=== PATIENT | female | born 1975 | race Caucasian/White ===

== ENCOUNTER 2019-05-27 12:47 | Emergency (ER) | payer BC ==
[~2019-05-27] VITALS: Ht 167.6 cm; Wt 88.5 kg
[~2019-05-27 12:47] MED LIST: IBUPROFEN600 MG PO; OXYCODON-ACETA1 EAC2 PO; TYLENOL325 MG PO; ZOFRAN4 MG PO
== END 2019-05-27 13:08 | disposition home or self-care (01) ==
LOC: ED 12:47
DX: T81.9XXA Unspecified complication of procedure, initial encounter (principal)

== ENCOUNTER 2021-10-07 07:52 | Day surgery (SDC) | payer BC ==
[~2021-10-07] VITALS: Ht 167.6 cm; Wt 98.0 kg
[~2021-10-07 07:52] MED LIST changes: +HAIR, SKIN &66.7 MCG PO; +MULTI VITAMIN1 EACH PO; +OXYBUTYNIN CHLO10 MG PO
--- NOTE | 2021-10-07 11:29 | NUR ---
PT RESTING QUIETLY WITH AT BEDSIDE. NO NEEDS AT THIS TIME.
--- NOTE | 2021-10-07 14:07 | NUR ---
10/07/21 1407 Fern Us 1402-PATIENT ARRIVED TO PACU ON 6L MASK RR EVEN NONAROUSABLE ORAL AIRWAY IN PLACE. SR. IVF INFUSING. 3 LAP SITES TO ABDOMEN CDI POSADAS CATHTER DRAINING YELLOW URINE.
--- NOTE | 2021-10-07 14:46 | NUR ---
RECIEVED PT FROM PACU, PT HAS POSADAS CATHETER IN PLACE DRAINING CLEAR YELLOW URINE. SHE IS DROWSY BUT ANSWERING QUESTIONS APPROPRIATLY. AMY PAD CHECK WITH CLARK RN, NO DRAINAGE AT THIS TIME. ABDOMINAL DRESSINGS X [address] WITH NO NOTED DRAINAGE. PT DENIES PAIN OR NAUSEA AT THIS TIME. ENCOURAGE TO COUGH AND DEEP BREATHE. PT MOVING ALL EXTREMITIES X 4.
--- NOTE | 2021-10-07 14:58 | NUR ---
PT TAKING SIPS OF WATER. DENIES PAIN AT THIS TIME.
--- NOTE | 2021-10-07 15:34 | NUR ---
PT RESTING COMFORTABLY. C/O MILD NAUSEA, ZOFRAN GIVEN. NO BLEEDING NOTED ON PAD. DRESSINGS REMAIN CLEAN DRY AND INTACT.
--- NOTE | 2021-10-09 12:57 | PATH ---
[facility] [address], [place] [address] Signed SPECIMEN(S): A UTERUS, CERVIX, BILAT FALLOPIAN TUBES SPECIMEN SOURCE: A. UTERUS, CERVIX, BILAT FALLOPIAN TUBES CLINICAL HISTORY: Complex endometrial hyperplasia without atypia, abnormal uterine bleeding. TLH, BS, cysto. FINAL PATHOLOGIC DIAGNOSIS: Uterus with bilateral fallopian tubes, hysterectomy and bilateral salpingectomy: - Secretory phase endometrium; no residual complex hyperplasia or polyp identified. - Cervix with no significant pathologic changes. - Bilateral fallopian tubes with no significant pathologic changes. COMMENT: The previous histologic material ([id number]) is reviewed in conjunction with the current case. BRP:cml:C2NR MICROSCOPIC EXAMINATION: Histologic sections of all submitted blocks are examined by light microscopy. These findings, together with the gross examination, support the pathologic diagnosis. GROSS DESCRIPTION: The specimen, labeled "CK, A," and designated on the requisition "cervix, uterus, bilateral fallopian tubes," is received in formalin and consists of a uterus (86 gram, 6.6 cm left to right, 5.7 cm superior to inferior, 3.7 cm anterior to posterior), attached cervix (2.7 cm in length x 2.8 cm in diameter) with pink-retana to hemorrhagic cervical mucosa and patent slit-shaped os (1.4 x 0.3 cm), and two detached and undesignated fimbriated fallopian tube segments (4.4 cm in length and ranging in diameter from 0.5-0.9 cm, and 2.8 cm in length and ranging in diameter from 0.6-0.8 cm). One fallopian tube segment is arbitrarily inked blue. Both fallopian tube segments are brown-retana and are sectioned to reveal a grossly unremarkable cut surface. The fimbriae are entirely submitted. The uterine serosa is pink-retana and smooth. The specimen is opened to reveal a PATIENT NAME: BRIAN WHEATLEY PATHOLOGY DATE OF : 75 REPORT #: [id number] PHYSICIAN: MARCY PATHOLOGY PCP: BRAYAN PARK PA-C REPORT IS CONFIDENTIAL AND NOT TO BE RELEASED WITHOUT AUTHORIZATION [facility] [address], [place] [address] Signed pink-retana to hemorrhagic endocervix (endocervical canal: 2.5 x 1.0 cm), and endometrial cavity (4.0 cm superior to inferior x 3.1 cm cornu to cornu) with hemorrhagic endometrial lining that measures up to 0.2 cm in thickness. The myometrium is pink-retana and trabeculated with no masses. Foundry Technician sections are submitted as follows: Cassette Summary: (A1-A2) Fallopian tubes (A3) Cervix (A4) Endomyometrium AC (under the direct supervision of a pathologist) Per request by Dr. Marinelli, the remainder of the endometrium is submitted entirely in 11 cassettes (A5-A15). AI 10/08/21 13:36 The Gross Description was prepared using a voice recognition system. The report was reviewed for accuracy; however, sound-alike word errors, addition and/or deletions may occur. If there is any question about this report, please contact Client Services. PERFORMING LABORATORY: The technical component was performed by [facility], [address] [place] [id number] (Hardwood Floor Finisher: Yen Gutierrez MD; CLIA# [id number]). Professional interpretation was performed by [facility], [facility], [address] [place] [address] (CLIA# [id number]). Diagnostician: Richard Marinelli MD Pathologist Electronically Signed 10/09/2021 Copies: ~ PATIENT NAME: BRIAN WHEATLEY PATHOLOGY DATE OF : 75 REPORT #: [id number] PHYSICIAN: MARCY PATHOLOGY PCP: BRAYAN PARK PA-C REPORT IS CONFIDENTIAL AND NOT TO BE RELEASED WITHOUT AUTHORIZATION
== END 2021-10-07 16:45 | disposition home or self-care (01) ==
LOC: DS 07:52 → OPS 07:52 → DS 10:00 → OPS 16:45
PROVIDERS: ATTEND Obstetrics & Gynecology
PROC: 0UT94ZZ Resection of Uterus, Percutaneous Endoscopic Approach (ICD-10-PCS; principal; 2021-10-07 09:45)
PROC: 0UT74ZZ Resection of Bilateral Fallopian Tubes, Percutaneous Endoscopic Approach (ICD-10-PCS; 2021-10-07 09:45)
DX: N80.0 Endometriosis of uterus (principal); N93.9 Abnormal uterine and vaginal bleeding, unspecified; Q62.5 Duplication of ureter; F41.9 Anxiety disorder, unspecified; Z87.891 Personal history of nicotine dependence
CPT/HCPCS: 00840; J0690; J1100; J1170; J1644; J1885; J2001; J2250; J2405; J2704; J3010

== ENCOUNTER 2022-07-13 16:09 | Emergency (ER) | payer BC ==
[~2022-07-13] VITALS: Ht 167.6 cm; Wt 102.4 kg
[2022-07-13] MEDS ORDERED: HYDROCODON-ACE1 EA10 PO (18:34)
== END 2022-07-13 18:51 | disposition home or self-care (01) ==
LOC: ED 16:09
DX: S39.011A Strain of muscle, fascia and tendon of abdomen, initial encounter (principal); W01.0XXA Fall on same level from slipping, tripping and stumbling without subsequent striking against object, initial encounter
CPT/HCPCS: 73502; 96372; 99283-25; J1885

== ENCOUNTER 2022-12-18 05:42 | Day surgery (SDC) | payer BC ==
[~2022-12-18] VITALS: Ht 167.6 cm; Wt 100.0 kg
[~2022-12-18 05:42] MED LIST changes: +HYDROCODON-ACE1 EA10 PO; +LEXAPRO20 MG PO; +VITAMIN D250 MCG PO
[2022-12-18] MEDS ORDERED: TRAMADOL HCL50 MG PO (07:42)
--- NOTE | 2022-12-18 07:45 | NUR ---
12/18/22 0745 Sheets,Yelena 0712 PT ARRIVED TO PACU ON 6L VIA MASK, PT WAKES TO TACTILE STIMULI AND DENIES PAIN AND NAUSEA. PT EASLY FALLS BACK TO SLEEP. 0739 O2 REMOVED, PT RPEORTS NUMBNESS IN HAND, BLOCK INFORMATION GIVEN. ICE PLACED ON SURGICAL SITE.
--- NOTE | 2022-12-18 10:06 | NUR ---
PT TAKEN TO SURGERY, CONNECTED WITH PTS' IN RM. HE HAS DECIDED TO WAIT IN RM FOR DC. ALL QUESTIONS ASKED ANSWERED. GAVE BLESSING AND WILL FOLLOW
--- NOTE | 2022-12-19 09:43 | OR ---
[facility] [address] [place], [place] [address] Signed DATE OF OPERATION: 12/18/2022 SURGEON: Rowdy De La Cruz MD PREOPERATIVE DIAGNOSIS: Trigger finger, left middle. POSTOPERATIVE DIAGNOSIS: Trigger finger, left middle. PROCEDURE PERFORMED: Trigger finger release, left middle. VOICE STUDIES DIRECTOR: None. ANESTHESIA: Yuliana block. TOURNIQUET TIME: 20 minutes. BRIEF HISTORY: Brian is a 47-year-old female with pain and locking in her middle finger. Risks and benefits of operative release were discussed with her and she elected to proceed. Once consent was obtained she was taken to the operating room. PROCEDURE IN DETAIL: After adequate anesthesia, she was left on the surgery bed and the hand table was brought and the arm was prepped and draped in a standard sterile fashion. A 1.5 cm incision was made in the distal palmar crease, carried through the skin and subcutaneous tissue. The soft tissue was quite fibrotic and was released down to the flexor tendon sheath. This was then opened up proximally a centimeter and distally A1 radha was released all the way. The patient was asked to move her hand. She was able to fully flex, fully extend without any triggering or locking. The wound was copiously irrigated with normal saline, closed with 3-0 nylon, injected with 5 mL 0.25% plain Marcaine. The wound was dressed with bacitracin, Adaptic, 4 x 8s, and gauze. She tolerated the procedure well. All sponge, needle, and instrument counts were correct. Electronically Signed By: ROWDY DE LA CRUZ MD 12/19/22 0943 PATIENT NAME: BRIAN WHEATLEY OPERATIVE REPORT DATE OF : 75 REPORT #: [id number] PHYSICIAN: ROWDY DE LA CRUZ MD PCP: BRAYAN PARK PA-C REPORT IS CONFIDENTIAL AND NOT TO BE RELEASED WITHOUT AUTHORIZATION [address] [place] [address] Signed Rowdy De La Cruz MD BA/MODL /[id number] Copies: ~ Electronically Signed By: ROWDY DE LA CRUZ MD 12/19/22 0943 PATIENT NAME: BRIAN WHEATLEY OPERATIVE REPORT DATE OF : 75 REPORT #: [id number] PHYSICIAN: ROWDY DE LA CRUZ MD PCP: BRAYAN PARK PA-C REPORT IS CONFIDENTIAL AND NOT TO BE RELEASED WITHOUT AUTHORIZATION
== END 2022-12-18 08:16 | disposition home or self-care (01) ==
LOC: DS 05:42
PROVIDERS: ATTEND Specialist
PROC: 0LN Tendons, Release (ICD-10-PCS; principal; 2022-12-18 07:00)
DX: M65.332 Trigger finger, left middle finger (principal); M72.0 Palmar fascial fibromatosis [Dupuytren]
CPT/HCPCS: J0690; J1100; J1885; J2250; J2405; J2704; J2765; J3010; J7121

== ENCOUNTER 2023-10-05 19:45 | Emergency (ER) | payer OTHER, BC ==
[~2023-10-05] VITALS: Ht 167.6 cm; Wt 106.4 kg
[~2023-10-05 19:45] MED LIST changes: +TRAMADOL HCL50 MG PO
[2023-10-05] MEDS ORDERED: MELOXICAM15 MG PO (21:09)
[2023-10-05] MEDS ORDERED: OMEPRAZOLE20 MG PO (21:09)
[2023-10-05] MEDS ORDERED: CYCLOBENZAPRINE10 MG PO (21:22)
[2023-10-05] MEDS ORDERED: MELOXICAM7.5 MG PO (21:25)
[2023-10-05 22:02] VITALS: BP 120/67
== END 2023-10-05 22:03 | disposition home or self-care (01) ==
LOC: ED 19:45
DX: S16.1XXA Strain of muscle, fascia and tendon at neck level, initial encounter (principal); S39.012A Strain of muscle, fascia and tendon of lower back, initial encounter; S29.012A Strain of muscle and tendon of back wall of thorax, initial encounter; V49.40XA Driver injured in collision with unspecified motor vehicles in traffic accident, initial encounter; Z79.899 Other long term (current) drug therapy
CPT/HCPCS: 71045; 72040; 72080; 73560; J1885; J3360